=== PATIENT | male | born 1995 | race Caucasian/White ===

== ENCOUNTER 2017-10-22 04:20 | Emergency (ER) | payer SELFPAY ==
--- NOTE | 2017-10-22 04:25 | NUR ---
PATIENT BIB [facility]; PATIENT STATES HE DOES NOT WANT TO BE SEEN BY [facility], DENIES ANY MEDICAL COMPLAINTS. PATIENT THEN AMBULATED TO ED WR WITH STEADY GAIT, SKIN WARM AND DRY, RESP EVEN AND UNLABORED, NO DISTRESS NOTED
== END 2017-10-22 04:29 | disposition left against medical advice (07) ==
LOC: ER 04:21
DX: Z53.21 Procedure and treatment not carried out due to patient leaving prior to being seen by health care provider (principal)